=== PATIENT | female | born 1955 | race Caucasian/White ===

== ENCOUNTER 2022-09-15 16:27 | Emergency (ER) | payer MEDICARE ==
[~2022-09-15] VITALS: Ht 160 cm; Wt 70.3 kg
[2022-09-15] MEDS ORDERED: QUET25 PO (16:43)
== END 2022-09-15 16:44 | disposition home or self-care (01) ==
LOC: ER 16:27
DX: Z76.0 Encounter for issue of repeat prescription (principal); Z88.0 Allergy status to penicillin; Z88.8 Allergy status to other drugs, medicaments and biological substances
CPT/HCPCS: 99281

== ENCOUNTER 2022-10-09 19:51 | Observation (INO) | payer MEDICARE ==
[~2022-10-09] VITALS: Ht 160 cm; Wt 71.7 kg
[~2022-10-09 19:51] MED LIST: QUET25 PO
[2022-10-09 21:13] LABS: BASOPHILS ABSOLUTE AUTO 0.09 K/mm3 (0.00-0.23); BASOPHILS PERCENT AUTO 1 % (0-2); EOSINOPHILS ABSOLUTE AUTO 0.19 K/mm3 (0.00-0.68); EOSINOPHILS PERCENT AUTO 2 % (0-6); Hematocrit 43.8 % (33.0-51.0); Hemoglobin 14.8 g/dL (11.5-16.0); IMMATURE GRAN ABSOLUTE AUTO 0.05 K/mm3 (0.00-0.10); IMMATURE GRAN PERCENT AUTO 1 % (0-1); LYMPHOCYTES PERCENT AUTO 22 % (21-46); MONOCYTES ABSOLUTE AUTO 1.12 K/mm3 (0.16-1.47); MONOCYTES PERCENT AUTO 12 % (4-13); Mean Corpuscular HGB 30.9 pg (26.0-34.0); Mean Corpuscular HGB Conc 33.8 g/dL (31.5-36.5); Mean Corpuscular Volume 91 fL (80-100); Mean Platelet Volume 9.7 fL (9.1-12.4); NEUTROPHILS ABSOLUTE AUTO 5.85 K/mm3 (1.96-9.15); NEUTROPHILS PERCENT AUTO 62 % (41-73); Platelet Count 324 K/mm3 (150-400); RDW Standard Deviation 50.6 fL (35.1-46.3); Red Blood Cell Count 4.79 M/mm3 (3.80-5.20)
[2022-10-09 21:33] LABS: Ethanol (Alcohol), Blood, Med <3 mg/dL
[2022-10-09 21:35] LABS: Acetaminophen, Random <2.0 ug/mL (10.0-30.0); Alanine Aminotransfer (ALT/SGP 31 U/L (12-78); Albumin, Blood 3.7 g/dL (3.4-5.0); Albumin/Globulin Ratio 1.1 (0.8-1.8); Alk Phos 130 U/L (50-136); Anion Gap 9 mmol/L (6-16); Aspartate Aminotrans (AST/SGOT 23 U/L (12-37); Bilirubin, Total 0.3 mg/dL (0.1-1.0); Blood Urea Nitrogen 17 mg/dL (8-24); Bun/Creatinine Ratio 20.9 (12.0-20.0); CO2, Blood 27 mmol/L (21-32); Calcium, Blood 9.5 mg/dL (8.5-10.1); Chloride, Blood 107 mmol/L (98-108); Creatinine, Blood 0.81 mg/dL (0.40-1.00); Globulin, Blood 3.4 g/dL (2.2-4.0); Glomerular Filtration Rate 80 (60-); Glucose, Blood 91 mg/dL (70-99); Potassium, Blood 4.5 mmol/L (3.5-5.5); Sodium, Blood 143 mmol/L (136-145); Total Protein, Blood 7.1 g/dL (6.4-8.2)
[2022-10-09] MEDS ORDERED: RANO500T PO (22:17)
[2022-10-09] MEDS ORDERED: CLOP75 PO (22:17)
[2022-10-09] MEDS ORDERED: DESV50 PO (22:19)
[2022-10-09] MEDS ORDERED: LEVE500 PO (22:19)
[2022-10-09] MEDS ORDERED: DONEPEZIL HCL10 MG PO (22:19)
[2022-10-09] MEDS ORDERED: METO25 (22:20)
[2022-10-09] MEDS ORDERED: EXEM25 PO (22:20)
[2022-10-09] MEDS ORDERED: LEVSOD137 PO (22:20)
[2022-10-09] MEDS ORDERED: Budeprion Xl300 MG PO (22:21)
[2022-10-09] MEDS ORDERED: AMLO5 PO (22:21)
[2022-10-09] MEDS ORDERED: ATOR40TA PO (22:22)
[2022-10-09] MEDS ORDERED: ASPI81CH PO (22:22)
[2022-10-09] MEDS ORDERED: ALEN70 PO (22:22)
[2022-10-09] MEDS ORDERED: OYSTER SHELL 51 EACH PO (22:23)
[2022-10-09 22:43] LABS: Influenza A, PCR NEGATIVE (NEGATIVE); Influenza B, PCR NEGATIVE (NEGATIVE); Resp Syncytial Virus, PCR NEGATIVE (NEGATIVE); SARS-Cov-2 (COVID-19) PCR, MMC NEGATIVE (NEGATIVE)
[2022-10-09 23:33] LABS: Source, Urine Clean Catch
[2022-10-09 23:35] LABS: Appearance, Urine Clear (Clear); Bilirubin, Urine Neg (Neg); Blood, Urine Neg (Neg); Color, Urine Yellow (P-Yellow); Glucose Qualitative, Urine Neg (Neg); Ketones, Urine 1+ (Neg); Leukocyte Esterase, Urine 1+ (Neg); Nitrite, Urine Neg (Neg); Protein, Urine Neg (Neg); Specific Gravity, Urine 1.025 (1.003-1.022); Urobilinogen, Urine NORM (Normal)
[2022-10-09 23:49] LABS: Bacteria Mod /hpf; Red Blood Cells, Urine 0-2 /hpf (0-2); Squamous Epithelial Cells Mod /hpf (Few); White Blood Cells, Urine 0-2 /hpf (0-5)
[2022-10-09 23:51] LABS: U Amphetamine Screen Not Detected; U Barbituate Screen Not Detected; U Benzodiazapine Screen Not Detected; U Buprenorphine Screen Not Detected; U Cannabinoids Screen Not Detected; U Cocaine Screen Not Detected; U Methadone Screen Not Detected; U Methamphetamine Screen Not Detected; U Opiates Screen Not Detected; U Oxycodone Screen Not Detected; U Phencyclidine Screen Not Detected; U Propoxyphene Screen Not Detected
== END 2022-10-12 10:43 | disposition home or self-care (01) ==
LOC: ER 19:51 → EOR 19:52
PROVIDERS: Student in an Organized Health Care Education/Training Program; ADMIT Student in an Organized Health Care Education/Training Program
DX: F31.9 Bipolar disorder, unspecified (principal); G40.909 Epilepsy, unspecified, not intractable, without status epilepticus; F03.90 Unspecified dementia, unspecified severity, without behavioral disturbance, psychotic disturbance, mood disturbance, and anxiety; I25.10 Atherosclerotic heart disease of native coronary artery without angina pectoris; I10 Essential (primary) hypertension; F17.210 Nicotine dependence, cigarettes, uncomplicated; Z88.1 Allergy status to other antibiotic agents; Z88.8 Allergy status to other drugs, medicaments and biological substances; Z79.899 Other long term (current) drug therapy; Z79.890 Hormone replacement therapy; Z79.82 Long term (current) use of aspirin
CPT/HCPCS: 0241U; 80053; 81001; 85025; 87086; 93005; 93010; 99285-25; A9270; G0378; G0480; Q3014

== ENCOUNTER → 2022-11-21 | Outpatient (CLI) | payer MEDICARE ==
[~2022-11-21] MED LIST changes: +ALEN70 PO; +AMLO5 PO; +ASPI81CH PO; +ATOR40TA PO; +Budeprion Xl300 MG PO; +CLOP75 PO; +DESV50 PO; +DONEPEZIL HCL10 MG PO; +EXEM25 PO; +LEVE500 PO; +LEVSOD137 PO; +METO25; +OYSTER SHELL 51 EACH PO; +RANO500T PO
[2022-11-23 09:56] LABS: Stool Occult Bld Immuno 1 Negative (NEGATIVE)
== END | disposition home or self-care (01) ==
LOC: LAB SHORT 16:00
PROVIDERS: Registered Nurse
DX: Z00.00 Encounter for general adult medical examination without abnormal findings (principal)
CPT/HCPCS: G0328